=== PATIENT | female | born 1950 | race Caucasian/White ===

== ENCOUNTER 2019-04-05 06:01 | Inpatient (IN) | payer OTHER | END 2019-04-06 16:33 | disposition home or self-care (01) | LOC: DAHIP 06:01 → 2BH 12:23 → 2CH 04-06 13:36 | PROC: 00B00ZZ Excision of Brain, Open Approach (ICD-10-PCS; principal; 2019-04-05 07:29) | DX: D32.0 Benign neoplasm of cerebral meninges (principal) ==